=== PATIENT | female | born 1980 | race Two or more races ===

== ENCOUNTER 2016-10-28 08:44 | Emergency (ER) | payer OTHER ==
[2016-10-28 08:55] VITALS: TEMP 98.3; BMI 26.7
--- NOTE | 2016-10-28 08:56 | PDOC ---
History of Present Illness - General Chief Complaint: Vaginal Bleeding Stated Complaint: HEADACHE, BLURRY VISION, VAG BLEEDING Time Seen by Provider: 10/28/16 08:56 History Source: Patient Exam Limitations: No Limitations - History of Present Illness Initial Comments: 10/28/16 08:56 CHIEF COMPLAINT: Vaginal bleeding HISTORY OF PRESENT ILLNESS: This is an otherwise healthy 36 year old a1 who underwent surgical at 8 wks gestation at the [facility] in [place] on 10/20. She reports that she had light bleeding following the procedure, but last night developed lower abdominal pain and this morning, had heavy bleeding (3 pads since 6am with clots). She reports some dizziness/ blurred vision when standing. She denies chest pain, shortness of breath, fevers /chills, or any other symptoms. V/s on arrival are notable for P 101. 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 REVIEW OF SYSTEMS: GENERAL/CONSTITUTIONAL: No fever or chills. No weight change. HEAD, EYES, EARS, NOSE AND THROAT: Transient blurred vision. No ear pain or discharge. No sore throat. CARDIOVASCULAR: No chest pain or palpitations. RESPIRATORY: No cough, wheezing, or shortness of breath. GASTROINTESTINAL: No nausea, vomiting, diarrhea or constipation. GENITOURINARY: See HPI. MUSCULOSKELETAL: No joint or muscle swelling or pain. No neck or back pain. SKIN: No rash or easy bruising. NEUROLOGIC: No headache, vertigo, loss of consciousness, or loss of sensation. PSYCHIATRIC: No depression or anxiety. ENDOCRINE: No increased thirst. No abnormal weight change. HEMATOLOGIC/LYMPHATIC: No anemia, easy bleeding, or history of blood clots. ALLERGIC/IMMUNOLOGIC: No hives or skin allergy. No latex allergy. PHYSICAL EXAM: GENERAL: The patient is awake, alert, and fully oriented, in no acute distress. HEAD: Normal with no signs of trauma. ENT: Pupils equal, round and reactive to light, extraocular movements intact, sclera anicteric, conjunctiva clear. Neck supple. LUNGS: Clear to auscultation bilaterally. Normal excursion. No respiratory distress or use of accessory muscles. CV: RRR, S1/S2, no MRG. Cap refill < 2 sec. ABDOMEN: Soft, non-distended, non-tender. EXTREMITIES: Normal range of motion, no edema. NEUROLOGICAL: Normal speech, normal gait. CN II-XII grossly intact. PSYCH: Normal mood, normal affect. SKIN: Warm, dry, normal turgor, no rashes or lesions noted. BODY PRESSER: Normal external exam. Cervix long, closed, posterior. No CMT. Mild bilateral adnexal tenderness, L>R. Moderate blood in vaginal vault, no clots. Past History - Past Medical History Allergies/Adverse Reactions: Allergies Allergy/AdvReac Type Severity Reaction Status Date / Time No Known Allergies Allergy Verified 10/28/16 08:49 Home Medications: Ambulatory Orders Plus Tablet 1 tab-cap PO DAILY 09/08/12 Acetaminophen [Tylenol .Regular Strength -] 325 mg PO Q4H PRN #2 tablet Ibuprofen [Motrin -] 200 mg PO Q4H PRN #2 tablet 09/12/12 Ibuprofen 600 mg PO Q6H #30 tablet 10/28/16 Asthma: No Cancer: No Cardiac Disorders: No Diabetes: No HTN: No Seizures: No Thyroid Disease: No Other medical history: denies - Psycho/Social/Smoking Cessation Hx Suicidal Ideation: No Smoking History: Never smoked Hx Alcohol Use: No Drug/Substance Use Hx: No Hx Substance Use Treatment: No *Physical Exam - Vital Signs Last Vital Signs Temp Pulse Resp BP Pulse Ox 98.3 F 101 H 18 135/86 98 10/28/16 08:49 10/28/16 08:49 10/28/16 08:49 10/28/16 08:49 10/28/16 08:49 ED Treatment Course - LABORATORY CBC & Chemistry Diagram: 10/28/16 09:30 10/28/16 09:30 Medical Decision Making - Medical Decision Making 10/28/16 09:50 A/P: 36 year old female with lower abdominal pain and vaginal bleeding 8 days post surgical . 1. CBC to rule out symptomatic anemia (lightheadedness, transient blurred vision when standing), BMP, T&S 2. Toradol 30mg IVP for pain 3. Transvaginal u/s to r/o retained POC 4. Re-assess 10/28/16 10:45 H/H within normal limits at 13.5/40.8. 10/28/16 11:36 Ultrasound reviewed: echogenic material within the endometrial cavity suspicious for retained products of conception. Discussed with Dr. Cristina attraction worker for OB- does not suspect retained POC and says findings are likely on the basis of blood clots. Will see patient at [facility] at 9:30am tomorrow. Patient is feeling better and agrees to the plan. Return precautions reviewed. *DC/Admit/Observation/Transfer Diagnosis at time of Disposition: Vaginal bleeding - Discharge Dispostion Admit: No - Prescriptions Prescriptions: Ibuprofen 600 mg PO Q6H #30 tablet - Patient Instructions Printed Discharge Instructions: DI for Vaginal Bleeding Additional Instructions: -Please see Dr. Cristina at the [facility] ([facility]) tomorrow at 9:30am. -Take ibuprofen as prescribed for pain/cramping. -Return here for heavy bleeding (more than one pad per hour) or any other concerning symptoms.
[2016-10-28] MEDS ORDERED: KETOROLAC TROMETHAMINE 30 MG/1 ML VIAL IVPUSH ONE (09:12)
[2016-10-28] MEDS ORDERED: SODIUM CHLORIDE 1,000 ML IV SCH (09:15)
[2016-10-28] MEDS ORDERED: KETOROLAC TROMETHAMINE 30 MG/1 ML VIAL ONE (09:17)
[2016-10-28 10:07] LABS: BASOPHIL 0.5 % (0-2.0); MCH 29.2 pg (25.7-33.7); MCHC 33.2 g/dl (32.0-36.0); MEAN CELL VOLUME 88.1 fl (80-96); MEAN PLT VOLUME 8.2 fl (7.5-11.1); PLATELET COUNT 303 K/MM3 (134-434); RDW 14.2 % (11.6-15.6); WHITE BLOOD COUNT 7.3 K/mm3 (4.0-10.0)
[2016-10-28 10:11] LABS: CALCIUM 9.2 mg/dL (8.5-10.1); CREATININE 0.6 mg/dL (0.55-1.02)
[2016-10-28 10:30] LABS: URINE APPEARANCE CLEAR; URINE BILIRUBIN NEGATIVE (NEGATIVE); URINE COLOR STRAW; URINE GLUCOSE (UA) NEGATIVE (NEGATIVE); URINE KETONE NEGATIVE (NEGATIVE); URINE LEUK ESTERASE NEGATIVE (NEGATIVE); URINE NITRITE NEGATIVE (NEGATIVE); URINE PROTEIN NEGATIVE (NEGATIVE); URINE UROBILINOGEN NEGATIVE E.U./dl (0.2-1.0)
[2016-10-28 10:45] LABS: URINE BLOOD 3+ (NEGATIVE)
[2016-10-28 10:47] LABS: URINE MUCUS RARE; URINE RBC 98 /hpf (0-3)
[2016-10-28 11:45] VITALS: BP 120/72; PULSE 71
== END 2016-10-28 11:50 | disposition home or self-care (01) ==
LOC: JER 08:44
PROC: 3E0333Z Introduction of Anti-inflammatory into Peripheral Vein, Percutaneous Approach (ICD-10-PCS; principal; 2016-10-28)
DX: N93.9 Abnormal uterine and vaginal bleeding, unspecified (principal)
CPT/HCPCS: 36415; 76830-TC; 80048; 81003; 81015; 85025; 86850; 86900; 86901; 87086; 96374; 99283-25

== ENCOUNTER 2017-10-08 07:17 | Emergency (ER) | payer OTHER ==
[2017-10-08 07:35] VITALS: BP 135/80; PULSE 83; TEMP 98.1; BMI 27.8
--- NOTE | 2017-10-08 07:55 | PDOC ---
History of Present Illness - General History Source: Patient - History of Present Illness Timing/Duration: reports: other (5 days ago) Associated Symptoms: reports: cough, sore throat. denies: chest pain/soreness, earache, facial pain, fever/chills, muscle aches, nasal congestion, nasal drainage, shortness of breath, wheezing <Wilbert Cherry - Last Filed: 10/08/17 09:45> <Berkley Smith - Last Filed: 10/08/17 09:48> - General Chief Complaint: Sore Throat Stated Complaint: SORE THROAT Time Seen by Provider: 10/08/17 07:54 Past History - Past Medical History Asthma: No Cancer: No Cardiac Disorders: No COPD: No Diabetes: No HTN: No Seizures: No Thyroid Disease: No - Reproductive History (#): 3 Para: 2 - Suicide/Smoking/Psychosocial Hx Smoking History: Never smoked Hx Alcohol Use: No Drug/Substance Use Hx: No Hx Substance Use Treatment: No <Wilbert Cherry - Last Filed: 10/08/17 09:45> <Berkley Smith - Last Filed: 10/08/17 09:48> - Past Medical History Allergies/Adverse Reactions: Allergies Allergy/AdvReac Type Severity Reaction Status Date / Time No Known Allergies Allergy Verified 10/08/17 07:28 Home Medications: Ambulatory Orders Plus Tablet 1 tab-cap PO DAILY 09/08/12 Ibuprofen [Motrin -] 200 mg PO Q4H PRN #2 tablet 09/12/12 Ibuprofen 600 mg PO Q6H #30 tablet 10/28/16 Review of Systems - Review of Systems Constitutional: No: Chills, Fever HEENTM: Yes: Throat Pain. No: Ear Pain Respiratory: Yes: Cough. No: Shortness of Breath <Wilbert Cherry - Last Filed: 10/08/17 09:45> *Physical Exam - Vital Signs Last Vital Signs Temp Pulse Resp BP Pulse Ox 98.1 F 83 19 135/80 97 10/08/17 07:28 10/08/17 07:28 10/08/17 07:28 10/08/17 07:28 10/08/17 07:28 - Physical Exam General Appearance: Yes: Appropriately Dressed. No: Apparent Distress HEENT: positive: Normal ENT Inspection, Normal Voice, TMs Normal, Pharynx Normal. negative: Scleral Icterus (R), Scleral Icterus (L), Muffled/Hoarse voice, Tonsillar Exudate, Tonsillar Erythema Neck: positive: Supple. negative: Lymphadenopathy (R), Lymphadenopathy (L) Respiratory/Chest: negative: Respiratory Distress Integumentary: positive: Dry, Warm Neurologic: positive: Fully Oriented, Alert, Normal Mood/Affect <Wilbert Cherry - Last Filed: 10/08/17 09:45> - Vital Signs Last Vital Signs Temp Pulse Resp BP Pulse Ox 98.1 F 83 19 135/80 97 10/08/17 07:28 10/08/17 07:28 10/08/17 07:28 10/08/17 07:28 10/08/17 07:28 <Berkley Smith - Last Filed: 10/08/17 09:48> ED Treatment Course - Medications Given in the ED: ED Medications Discontinued Medications Generic Name Dose Route Start Last Admin Trade Name Danielq PRN Reason Stop Dose Admin Ibuprofen 800 mg 10/08/17 08:16 10/08/17 09:04 Motrin - PO 10/08/17 08:17 800 mg ONCE ONE Administration <Berkley Smith - Last Filed: 10/08/17 09:48> Medical Decision Making - Medical Decision Making 10/08/17 07:55 37-year-old female, no significant history here with sore throat and cough 5 days. No ear pain, sob, body aches, nausea, vomiting, diarrhea, fever or chills. States her child has the flu at home. Patient taking 400 mg of motrin with mild relief. Patient currently on amoxicillin after having recent dental extraction See exam M/l viral pharyngitis Exam unremarkable Dc w/ pain control <Wilbert Cherry Last Filed: 10/08/17 09:45> *DC/Admit/Observation/Transfer <Wilbert Cherry Filed: 10/08/17 09:45> - Attestations Physician Attestion: I reviewed the case with the mid-level practitioner and agree with the mid- level practitioner's assessment, diagnosis and disposition. <Berkley Smith - Last Filed: 10/08/17 09:48> Diagnosis at time of Disposition: Sore throat - Discharge Dispostion Disposition: HOME Condition at time of disposition: Good - Patient Instructions Printed Discharge Instructions: DI for Viral Pharyngitis Additional Instructions: The cause of your sore throat is most likely viral. There is no evidence of strep throat. Take 800 mg of Motrin every 6 hours as needed for pain
[2017-10-08] MEDS ORDERED: IBUPROFEN 400 MG TABLET (FP) PO ONE ×2 (08:16→09:02)
== END 2017-10-08 09:10 | disposition home or self-care (01) ==
LOC: JER 07:17
DX: J02.9 Acute pharyngitis, unspecified (principal); B97.89 Other viral agents as the cause of diseases classified elsewhere
CPT/HCPCS: 99281-25

== ENCOUNTER 2018-12-20 23:03 | Emergency (ER) | payer OTHER ==
[2018-12-20 23:21] VITALS: BP 146/100; PULSE 128; TEMP 98; BMI 25.7
[2018-12-21] MEDS ORDERED: ACETAMINOPHEN 1000 MG/100 ML VIAL (NON FORMULARY) IVPB ONE (00:01)
[2018-12-21] MEDS ORDERED: ACETAMINOPHEN INJECTION 100 ML IVPB ONE (00:31)
[2018-12-21 00:38] LABS: BASO % 0.2 % (0-2.0); EOS % 0.5 % (0-4.5); HEMATOCRIT 37.9 % (32.4-45.2); HEMOGLOBIN 12.9 GM/dL (10.7-15.3); LYMPH % 19.6 % (8-40); MEAN CELL VOLUME 88.1 fl (80-96); MONO % 5.6 % (3.8-10.2); NEUT % 74.1 % (42.8-82.8); PLATELET COUNT 271 K/MM3 (134-434); RDW 14.4 % (11.6-15.6); WHITE BLOOD COUNT 7.8 K/mm3 (4.0-10.0)
--- NOTE | 2018-12-21 02:03 | PDOC ---
Documentation entered by Baldo Templeton SCRIBE, acting as scribe for Maia Keene MD. Maia Keene MD: This documentation has been prepared by the anjuibe, Baldo Templeton SCRIBE, under my direction and personally reviewed by me in its entirety. I confirm that the documentation accurately reflects all work, treatment, procedures, and medical decision making performed by me. History of Present Illness - General Chief Complaint: Vaginal Bleeding Stated Complaint: 3 MON. PREG, PAIN Time Seen by Provider: 12/20/18 23:19 History Source: Patient, Significant Other Exam Limitations: No Limitations - History of Present Illness Initial Comments: 12/20/18 23:41 The patient is a 38 year old female(), 3 months , with no significant past medical history who presents to the emergency department with vaginal bleed since earlier today. The patient reports that she was at home earlier today when she began to experience an onset of heavy vaginal bleeding. The patient reports some associated severe lower suprapubic abdominal pain with her vaginal bleed. The patient reports some lower back pain earlier in the day before the onset of her vaginal bleeding and abdominal pain. She states that she follows her OB at [address] [place] [address] ( last US was 12/09, IUP 12 weeks). It is noted that the patient has had 1 and 1 natural in the past (lmp 09/14/18). The patient denies any fever, chills nausea, vomiting, diarrhea or constipation. She denies any other complaints. Timing/Duration: 4-6 hours Severity: moderate Past History - Past Medical History Allergies/Adverse Reactions: Allergies Allergy/AdvReac Type Severity Reaction Status Date / Time No Known Allergies Allergy Verified 02/03/18 09:25 Home Medications: Ambulatory Orders NK [No Known Home Medication] 02/03/18 Asthma: No Cancer: No Cardiac Disorders: No COPD: No DVT: No Diabetes: No HTN: No Seizures: No Thyroid Disease: No - Reproductive History (#): 3 Para: 2 - Suicide/Smoking/Psychosocial Hx Smoking History: Never smoked Have you smoked in the past 12 months: No Hx Alcohol Use: No Drug/Substance Use Hx: No Substance Use Type: None Hx Substance Use Treatment: No Review of Systems - Review of Systems Able to Perform ROS?: Yes Comments:: 12/21/18 00:05 CONSTITUTIONAL: Absent: fever, no chills, no fatigue EYES: Absent: visual changes ENT: Absent: ear pain, no sore throat CARDIOVASCULAR: Absent: chest pain, no palpitations RESPIRATORY: Absent: cough, no SOB GI:(+)abdominal cramping. Absent: no nausea, no vomiting, no constipation, no diarrhea GENITOURINARY:(+)vaginal bleeding. Absent: dysuria, no frequency, no hematuria MUSKULOSKELETAL: Absent: back pain, no arthralgia, no myalgia SKIN: Absent: rash NEURO: Absent: headache *Physical Exam - Vital Signs Last Vital Signs Temp Pulse Resp BP Pulse Ox 98 F 128 H 20 146/100 98 12/20/18 23:08 12/20/18 23:08 12/20/18 23:08 12/20/18 23:08 12/20/18 23:08 ED Treatment Course - LABORATORY CBC & Chemistry Diagram: 12/21/18 00:19 - ADDITIONAL ORDERS Additional order review: 12/21/18 00:19 RBC 4.30 MCV 88.1 MCHC 34.0 RDW 14.4 MPV 8.0 Neutrophils % 74.1 D Lymphocytes % 19.6 D Monocytes % 5.6 Eosinophils % 0.5 Basophils % 0.2 - RADIOLOGY Radiology Studies Ordered: Category Date Time Status <14WKS US [US] Stat Ultrasound 12/20/18 23:21 Taken - Medications Given in the ED: ED Medications Discontinued Medications Generic Name Dose Route Start Last Admin Trade Name Freq PRN Reason Stop Dose Admin Acetaminophen 1,000 mg 12/21/18 00:01 12/21/18 00:35 Ofirmev Injection - IVPB 12/21/18 00:02 1,000 mg ONCE ONE Administration Medical Decision Making - Medical Decision Making 12/21/18 01:27 Transvaginal ultrasound reading Live intrauterine 14 weeks. 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
== END 2018-12-21 02:12 | disposition home or self-care (01) ==
LOC: JER 23:03
PROC: 3E033NZ Introduction of Analgesics, Hypnotics, Sedatives into Peripheral Vein, Percutaneous Approach (ICD-10-PCS; principal; 2018-12-20)
DX: O26.892 Other specified pregnancy related conditions, second trimester (principal); O20.0 Threatened abortion; Z3A.14 14 weeks gestation of pregnancy
CPT/HCPCS: 36415; 76801-TC; 84702; 85025; 86850; 86900; 86901; 96374; 99283-25; J0131

== ENCOUNTER 2018-12-22 17:13 | Emergency (ER) | payer OTHER ==
--- NOTE | 2018-12-22 17:16 | PDOC ---
Rapid Medical Evaluation Chief Complaint: Vaginal Bleeding Time Seen by Provider: 12/22/18 17:15 Medical Evaluation: Allergies Allergy/AdvReac Type Severity Reaction Status Date / Time No Known Allergies Allergy Verified 02/03/18 09:25 12/22/18 17:18 I have performed a brief in-person evaluation of this patient. The patient presents with a chief complaint of: 3 mos , bleeding seen in ed for same, placenta previa with closed os, live iup Pertinent physical exam findings:stable and in NAD, non-focal I have ordered the following:labs The patient will proceed to the ED for further evaluation.
[2018-12-22 17:21] VITALS: BMI 24.9
--- NOTE | 2018-12-22 17:53 | PDOC ---
History of Present Illness - General Chief Complaint: Vaginal Bleeding Stated Complaint: ABD PAIN RREGNANT Time Seen by Provider: 12/22/18 17:15 History Source: Patient Exam Limitations: Language Barrier ([id number]) - History of Present Illness Initial Comments: 12/22/18 17:57 38 yo F 14 weeks 1 day (by LMP 09/14/2018) with no past medical history presents to the emergency department with vaginal bleeding and midline lower abdominal cramping that began today at 5:15 pm. Per the patient, she states she was sleeping when she arose from bed and had 3 large red blood clots pass with approximately 3 ounces of a water like viscosity vaginal discharge. She stated after this occurred, she immediately began having lower abdominal cramping with left lower back pain described as a cramp like sensation that is constant. Per the patient, she was evaluated by our department the day prior for vaginal bleeding and had a TVUS that showed a single IUP at 14 weeks 1 day. Endorses nausea and vomiting (NBNB). Denies the following: chest pain, fever, chills, ears/nose/throat pain, SOB, dysuria, hematuria, diarrhea, hematochezia, and leg pain/swelling. Allergies: NKDA Social: Denies tobacco, alcohol, and substance abuse. Past History - Past Medical History Allergies/Adverse Reactions: Allergies Allergy/AdvReac Type Severity Reaction Status Date / Time No Known Allergies Allergy Verified 12/22/18 17:20 Home Medications: Ambulatory Orders NK [No Known Home Medication] 02/03/18 Asthma: No Cancer: No Cardiac Disorders: No COPD: No DVT: No Diabetes: No HTN: No Seizures: No Thyroid Disease: No - Reproductive History (#): 3 Para: 2 Cervical CA: No Dysfunctional Uterine Bleeding: No Ectopic : No Endometrial CA: No Polycystic Ovaries: No Therapeutic (s) & number: No Tubal Ligation: No Spontaneous : 0 - Suicide/Smoking/Psychosocial Hx Smoking History: Never smoked Have you smoked in the past 12 months: No Information on smoking cessation initiated: No Hx Alcohol Use: No Drug/Substance Use Hx: No Substance Use Type: None Hx Substance Use Treatment: No Review of Systems - Review of Systems Able to Perform ROS?: Yes Is the patient limited Persian proficient: No Constitutional: No: Chills, Diaphoresis, Fever HEENTM: No: Eye Pain, Recent change in vision, Ear Pain, Nose Pain, Throat Pain , Mouth Pain Respiratory: No: Cough, Shortness of Breath, Hemoptysis Cardiac (ROS): No: Chest Pain, Lightheadedness, Palpitations, Syncope, Chest Tightness ABD/GI: Yes: Nausea, Vomiting, Abdominal cramping. No: Constipated, Diarrhea, Poor Appetite, Poor Fluid Intake, Rectal Bleeding, Tarry Stools : No: Burning, Dysuria, Hematuria, Incontinence Musculoskeletal: Yes: Back Pain. No: Joint Pain, Neck Pain Integumentary: No: Bruising, Erythema, Rash Neurological: No: Headache, Numbness, Tingling, Tremors Psychiatric: No: Change in Appetite Endocrine: No: Unexplained Weight Gain Hematologic/Lymphatic: No: Anemia *Physical Exam - Vital Signs Last Vital Signs Temp Pulse Resp BP Pulse Ox 98.1 F 82 18 127/67 100 12/22/18 17:18 12/22/18 17:18 12/22/18 17:18 12/22/18 17:18 12/22/18 17:18 - Physical Exam General Appearance: Yes: Nourished, Appropriately Dressed. No: Apparent Distress, Intoxicated HEENT: positive: EOMI, RO, Normal Voice, Symmetrical, Pharynx Normal, Hearing Grossly Normal. negative: Pale Conjunctivae, Scleral Icterus (R), Scleral Icterus (L), Muffled/Hoarse voice, Pharyngeal Erythema, Tonsillar Exudate, Tonsillar Erythema, Nasal Congestion, Rhinorrhea, Sinus Tenderness, Excessive drooling Neck: positive: Trachea midline, Supple. negative: Tender, Lymphadenopathy (R) , Lymphadenopathy (L), Tender lateral, Tender midline Respiratory/Chest: positive: Lungs Clear, Normal Breath Sounds. negative: Chest Tender, Respiratory Distress, Accessory Muscle Use, Rhonchi, Stridor, Wheezing Cardiovascular: positive: Regular Rhythm, Regular Rate, S1, S2. negative: Systolic Murmur Female Pelvic Exam: positive: normal external exam, cervical os closed, normal adnexa, vaginal bleeding (meier color consistent with aged blood). negative: CMT , adnexal tenderness Gastrointestinal/Abdominal: positive: Normal Bowel Sounds, Tender (midline abdominal), Flat, Soft. negative: Distended, Guarding, Rebound Lymphatic: negative: Adenopathy Musculoskeletal: positive: Normal Inspection. negative: CVA Tenderness, Vertebral Tenderness Extremity: positive: Normal Capillary Refill, Normal Inspection, Normal Range of Motion. negative: Tender Integumentary: positive: Normal Color, Dry, Warm. negative: Hives, Petechiae, Rash, Swelling, Ecchymosis Neurologic: positive: boxcar weigher II-XII NML intact, Fully Oriented, Alert, Normal Mood/ Affect, Normal Response, Motor Strength 5/5. negative: EOM Palsy, Facial Droop , Sensory Deficit ED Treatment Course - LABORATORY CBC & Chemistry Diagram: 12/22/18 18:26 12/22/18 18:26 Medical Decision Making - Medical Decision Making 38 yo F 14 weeks 1 day (by LMP 09/14/2018) with no past medical history presents to the emergency department with vaginal bleeding and midline lower abdominal cramping that began today at 5:15 pm. Initial vitals: Initial Vital Signs Temp Pulse Resp BP Pulse Ox 98.1 F 82 18 127/67 100 12/22/18 17:18 12/22/18 17:18 12/22/18 17:18 12/22/18 17:18 12/22/18 17:18 Work up: ddx: threatened vs inevitable vs incomplete vs complete . Other ddx includes placental abruption vs placental previa. physical exam shows closed os with aged blood and no adnexal tenderness or CMT. Will get a cbc, cmp, bhcg, and us for . ua and urine culture will also be evaluated Laboratory Tests 12/22/18 12/22/18 12/22/18 18:00 18:26 18:26 WBC 9.0 RBC 4.46 Hgb 13.4 Hct 39.0 MCV 87.4 MCH 30.0 MCHC 34.3 RDW 14.1 Plt Count 305 MPV 8.1 Absolute Neuts (auto) 6.2 Neutrophils % 69.1 Lymphocytes % 24.1 D Monocytes % 5.8 Eosinophils % 0.7 Basophils % 0.3 Nucleated RBC % 0 Sodium 138 Potassium 3.6 Chloride 109 H Carbon Dioxide 18 L Anion Gap 11 BUN 9 Creatinine 0.5 L Creat Clearance w eGFR 139.61 Random Glucose 89 Calcium 9.3 Total Bilirubin AST ALT Alkaline Phosphatase Total Protein Albumin Beta HCG, Quant 43831.0 Urine Color Yellow Urine Appearance Clear Urine pH 5.5 Ur Specific Dupont 1.018 Urine Protein Negative Urine Glucose (UA) Negative Urine Ketones 1+ H Urine Blood 3+ H Urine Nitrite Negative Urine Bilirubin Negative Urine Urobilinogen 1.0 Ur Leukocyte Esterase Negative Urine WBC (Auto) 1 Urine RBC (Auto) 2 Urine Casts (Auto) 4 U Pathogenic Cast Auto No Result Required. U Epithel Cells (Auto) 3.4 U Sm Round Cell (Auto) No Result Required. Urine Crystals (Auto) No Result Required. Urine Bacteria (Auto) 151.7 Blood Type Antibody Screen 12/22/18 12/22/18 18:26 18:26 WBC RBC Hgb Hct MCV MCH MCHC RDW Plt Count MPV Absolute Neuts (auto) Neutrophils % Lymphocytes % Monocytes % Eosinophils % Basophils % Nucleated RBC % Sodium 137 Potassium 3.6 Chloride 108 H Carbon Dioxide 20 L Anion Gap 10 BUN 9 Creatinine 0.4 L Creat Clearance w eGFR 180.61 Random Glucose 91 Calcium 9.3 Total Bilirubin 0.4 AST 14 L ALT 13 Alkaline Phosphatase 53 Total Protein 6.9 Albumin 3.6 Beta HCG, Quant Urine Color Urine Appearance Urine pH Ur Specific Dupont Urine Protein Urine Glucose (UA) Urine Ketones Urine Blood Urine Nitrite Urine Bilirubin Urine Urobilinogen Ur Leukocyte Esterase Urine WBC (Auto) Urine RBC (Auto) Urine Casts (Auto) U Pathogenic Cast Auto U Epithel Cells (Auto) U Sm Round Cell (Auto) Urine Crystals (Auto) Urine Bacteria (Auto) Blood Type O POSITIVE Antibody Screen Negative Interventions include tylenol, [place] [id number], less than 1000 below her previous value from the previous day. US shows an appropriate FHR with normal levels of amniotic fluid at 14 weeks 3 days EGA. Patient has been stable throughout her ED stay. her UA shows negative leuk est and nitrite with 1 wbc, but shows 151 bacteria count. will follow up on the culture and if positive patient will receive antibiotics. Patient was given strict return precautions and states she will follow up with her OBGYN in 48 hours for recheck of bhcg. Dispo: Discharge *DC/Admit/Observation/Transfer Diagnosis at time of Disposition: Vaginal bleeding Qualifiers: Weeks of gestation: 14 weeks Qualified Code(s): Z3A.14 - 14 weeks gestation of - Discharge Dispostion Disposition: HOME Decision to Admit order: No - Referrals Referrals: Shanika Lundberg CNM [Certified Nurse Civil Drafter] - Judy Alex MD [Staff Physician] - - Patient Instructions Printed Discharge Instructions: DI for Vaginal Bleeding During Additional Instructions: You were seen in the emergency department for vaginal bleed and cramping. your ultrasound was within normal limits with the baby's heart rate at 144. Your bhcg was [id number]. please follow up with your OBGYN in 2 days for an evaluation of your bhcg and ultrasound. please return to the emergency department if you have worsening symptoms or new concerning symptoms such as fever, chills, nausea, vomiting, pain with urination, blood in the urine, and ascending flank pain. thank you. Usted fue atendido en el departamento de emergencias por sangrado vaginal y clicos. ulloa ultrasonido estuvo dentro de los lmites normales con la frecuencia cardaca del beb en 144. [place] bhcg fue [id number]. Por favor, juli un seguimiento con ulloa OBGYN en 2 soliz para trey evaluacin de ulloa bhcg y ultrasonido. vuelva a la javier de emergencias si tiene sntomas de empeoramiento o sntomas nuevos, evon fiebre, escalofros, nuseas, vmitos, dolor al orinar, tisha en la orina y dolor en el flanco ascendente. jazz. Print Language: INDONESIAN - Post Discharge Activity Forms/Work/School Notes: Back to Work
[2018-12-22 18:41] LABS: BASO % 0.3 % (0-2.0); EOS % 0.7 % (0-4.5); HEMOGLOBIN 13.4 GM/dL (10.7-15.3); LYMPH % 24.1 % (8-40); MCHC 34.3 g/dl (32.0-36.0); MEAN CELL VOLUME 87.4 fl (80-96); MEAN PLT VOLUME 8.1 fl (7.5-11.1); MONO % 5.8 % (3.8-10.2); NEUT % 69.1 % (42.8-82.8); PLATELET COUNT 305 K/MM3 (134-434); RBC 4.46 M/mm3 (3.60-5.2); RDW 14.1 % (11.6-15.6)
[2018-12-22 18:42] LABS: EPI CELLS 3.4 /HPF (0-5/HPF); PH,URINE 5.5 (5.0-8.0); URINE APPEARANCE CLEAR; URINE BACTERIA 151.7 /hpf (NEGATIVE); URINE BILIRUBIN NEGATIVE (NEGATIVE); URINE CASTS 4 /lpf (0-8); URINE COLOR YELLOW; URINE GLUCOSE (UA) NEGATIVE (NEGATIVE); URINE KETONE 1+ (NEGATIVE); URINE LEUK ESTERASE NEGATIVE (NEGATIVE); URINE NITRITE NEGATIVE (NEGATIVE); URINE PROTEIN NEGATIVE (NEGATIVE); URINE RBC 2 /hpf (0-4); URINE WBC 1 /hpf (0-5)
--- NOTE | 2018-12-22 19:04 | PDOC ---
Documentation entered by Jorge Tucker SCRIBE, acting as scribe for Jesse Stinson MD. Jesse Stinson MD: This documentation has been prepared by the Garrett norris Nirvannie, SCRIBE, under my direction and personally reviewed by me in its entirety. I confirm that the documentation accurately reflects all work, treatment, procedures, and medical decision making performed by me. Attending Attestation - Resident Resident Name: Adonis Colmenares - ED Attending Attestation I have performed the following: I have examined & evaluated the patient, The case was reviewed & discussed with the resident, I agree w/resident's findings & plan - HPI HPI: 12/22/18 18:17 CC: Vaginal bleeding and abdominal pain. HPI: The patient is a 38 year old 14 weeks female , with no significant past medical history, who presents to the emergency department with, a 5/10 lower abdominal cramping with associated back back pain after passing 3 large blood clots and approximately 3oz of water at approximately 5:15pm. She denies any trauma to the pelvic area. Allergies: NKDA Blood Type: O+ - Physicial Exam PE: 12/22/18 18:42 Vitals: Triage vital signs reviewed General Appearance: No acute distress, well nourished, well developed Head: Atraumatic. Abdomen: Soft, nondistended, normal bowel sounds, nontender to palpation Genitourinary: Refer to resident exam. Neuro: AOX3; Cranial Nerves 2-12 grossly intact Psych: Normal mood, normal affect - Medical Decision Making 12/22/18 19:04 Second visit in 2 days with new bleeding Watery discharge Transvaginal ultrasound pending Dr. Neil to follow-up results and dispo
[2018-12-22 19:06] LABS: ALBUMIN 3.6 g/dl (3.4-5.0); ALK PHOS 53 U/L (45-117); ANION GAP 10 MMOL/L (8-16); BILIRUBIN,TOTAL 0.4 mg/dL (0.2-1); BLOOD UREA NITROGEN 9 mg/dL (7-18); CALCIUM 9.3 mg/dL (8.5-10.1); CHLORIDE 108 mmol/L (98-107); CO2 20 mmol/L (21-32); CREATININE 0.4 mg/dL (0.55-1.3); GLUCOSE,RANDOM 91 mg/dL (74-106); POTASSIUM 3.6 mmol/L (3.5-5.1); SGOT/AST 14 U/L (15-37); SGPT/ALT 13 U/L (13-61); SODIUM 137 mmol/L (136-145); TOT PROT 6.9 g/dl (6.4-8.2)
[2018-12-22 20:23] LABS: ANION GAP 11 MMOL/L (8-16); BLOOD UREA NITROGEN 9 mg/dL (7-18); CALCIUM 9.3 mg/dL (8.5-10.1); CHLORIDE 109 mmol/L (98-107); CO2 18 mmol/L (21-32); CREATININE 0.5 mg/dL (0.55-1.3); GLUCOSE,RANDOM 89 mg/dL (74-106); POTASSIUM 3.6 mmol/L (3.5-5.1); SODIUM 138 mmol/L (136-145)
[2018-12-22 21:04] VITALS: BP 125/65; PULSE 81; TEMP 98.7
== END 2018-12-22 21:10 | disposition home or self-care (01) ==
LOC: JER 17:13
DX: O26.892 Other specified pregnancy related conditions, second trimester (principal); O20.8 Other hemorrhage in early pregnancy; Z3A.14 14 weeks gestation of pregnancy
CPT/HCPCS: 36415; 76801-TC; 80048; 80053; 81003; 84702; 85025; 86850; 86900; 86901; 87081; 87086; 99283-25

== ENCOUNTER 2019-05-15 11:05 | Inpatient (IN) | payer OTHER ==
[2019-05-15] MEDS ORDERED: DEXTROSE 5%-LACTATED RINGERS 1,000 ML IV SCH (12:30)
[2019-05-15 13:30] VITALS: BMI 29.3
[2019-05-15] MEDS ORDERED: ELECTROLYTE-148 SOLN 500 ML IV ONE (13:45)
[2019-05-15] MEDS ORDERED: CITRIC ACID/SODIUM CITRATE 30 ML UNIT-DOSE CUP PO ONE (13:45)
[2019-05-15 14:02] LABS: BASO % 0.3 % (0-2.0); EOS % 0.4 % (0-4.5); HEMOGLOBIN 11.8 GM/dL (10.7-15.3); LYMPH % 21.9 % (8-40); MCH 29.7 pg (25.7-33.7); MCHC 33.5 g/dl (32.0-36.0); MEAN CELL VOLUME 88.6 fl (80-96); MEAN PLT VOLUME 8.9 fl (7.5-11.1); MONO % 6.9 % (3.8-10.2); NEUT % 70.5 % (42.8-82.8); PLATELET COUNT 245 K/MM3 (134-434); RBC 3.95 M/mm3 (3.60-5.2); RDW 13.9 % (11.6-15.6); WHITE BLOOD COUNT 8.1 K/mm3 (4.0-10.0)
[2019-05-15 14:13] LABS: INR 0.91 (0.83-1.09); PROTHROMBIN TIME (PATIENT) 10.7 SEC (9.7-13.0)
[2019-05-15] MEDS ORDERED: ELECTROLYTE-148 SOLN 500 ML IV SCH (14:15)
[2019-05-15 14:16] LABS: ACTIVATED PTT 26.3 SECONDS (25.2-36.5)
[2019-05-15 14:53] LABS: BLOOD UREA NITROGEN 7.8 mg/dL (7-18); CALCIUM 8.7 mg/dL (8.5-10.1); CREATININE 0.6 mg/dL (0.55-1.3); POTASSIUM 3.8 mmol/L (3.5-5.1)
[2019-05-15] MEDS ORDERED: ONDANSETRON 4 MG/2 ML VIAL IVPUSH PRN (16:00)
--- NOTE | 2019-05-15 16:02 | HP ---
Past Medical History - Primary Care Physician PCP:: Indra Mays - Admission Chief Complaint: vaginal bleeding History of Present Illness: Patient reports leaking of blood starting at 10:30am. She reports that she feels like she is leaking and every ti,e she gets up blood comes out. She reports +FM, no contractions. 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: Alzheimer's, CVA, Dementia, Migraine, Multiple Sclerosis, Peripheral Neuropathy, Parkinson's, Seizure, Syncope, TIA, Vertigo, Other Cardiovascular: No: AFIB, Aneurysm, Aortic Insufficiency, Aortic Stenosis, CAD, CHF, Deep Vein Thrombosis, HTN, Hyperlipdemia, [place], Mitral Insufficiency, Mitral Stenosis, Murmur, Pulmonary Hypertension, Other Pulmonary: No: Asthma, Bronchitis, Cancer, COPD, O2 Dependent, Pneumonia, Previously Intubated, Pulmonary Embolus, Pulmonary Fibrosis, Sleep Apnea, Other Gastrointestinal: No: Ascites, Cancer, Constipation, Crohn's Disease, Diverticulitis, Diverticulosis, Esophageal Varices, Gastritis, GERD, GI Bleed, Hemorrhoids, Hiatal Hernia, Inflamatory Bowel Disease, Irritable Bowel Disease, Pancreatitis, Peptic Ulcer Disease, Ulcerative Colitis, Other Hepatobiliary: No: Cirrhosis, Cholelithiasis, Cholecystitis, Choledocholithiasis , Hepatitis A, Hepatitis B, Hepatitis C, Other Renal/: No: Renal Failure, Renal Inusuff, BPH, Cancer, Hematuria, Hemodialysis , Neurogenic Bladder, Renal Calculi, UTI, Other Reproductive: No: Ectopic , Endometriosis, Fibroids, PID, Polycystic Ovary Syndrome, Postmenopausal, Other ...: 5 ...Para: 2 ...Term: 2 ...: 0 ...Spon : 1 ...Induced : 1 ...Multiple Gestation: 0 ...LMP: 09/13/18 ... Weeks Gestation by Dates: 34.6 ...EDC by Dates: 06/20/19 ...EDC by Sono: 06/17/19 Heme/Onc: No: Anemia, B12 Deficiency, Bleeding Disorder, Cancer, Current Chemotherapy, Current Radiation Therapy, Hemochromatosis, Hypercoaguable State, Myeloproliferative Synd, Sickle Cell Disease, Sickle Cell Trait, Thrombocytopenia, Other Infectious Disease: No: AIDS, C-Diff, Herpes Zoster, HIV, MRSA, STD's, Tuberculosis, VREF, Other Psych: No: Addictions, Anxiety, Bipolar, Depression, Panic, Psychosis, Schizophrenia, Other Musculoskeletal: No: Bursitis, Chronic low back pain, Hemiparesis, Hemiplegia, Osteoarthritis, Paraplegia, Other Rheumatology: No: Fibromyalgia, Gout, Lupus, Rheumatoid Arthritis, Sarcoidosis, Vasculitis, Other ENT: No: Allergic Rhinitis, Sinusitis, Other Endocrine: No: Furnas's Disease, Vincent's Disease, Diabetes Insipidus, Diabetes Mellitus, Hyperparathyroidism, Hyperthyroidism, Hypothyroidism, Osteopenia, SIADH, Other Dermatology: No: Basal Cell, Cellulitis, Eczema, Melanoma, Psoriasis, Squamous Cell, Other - Past Surgical History Past Surgical History: Yes: Hx Myomectomy: No Hx Transabdominal Cerclage: No - Smoking History Smoking history: Never smoked Have you smoked in the past 12 months: No - Alcohol/Substance Use Hx Alcohol Use: No History of Substance Use: reports: None Home Medications - Allergies Allergies/Adverse Reactions: Allergies Allergy/AdvReac Type Severity Reaction Status Date / Time No Known Allergies Allergy Verified 05/15/19 12:53 - Home Medications Home Medications: Ambulatory Orders Pnv No.95/Ferrous Fum/Folic AC [ Vitamin Tablet] 1 each PO DAILY Review of Systems - Review of Systems Constitutional: denies: No Symptoms, Chills, Diaphoresis, Fever, Lethargy, Loss of Appetite, Malaise, Night Sweats, Unintentional Wgt. Loss, Weakness, Other Eyes: denies: No Symptoms, Blind Spots, Blurred Vision, Double Vision, Eye Pain , Floaters, Photophobia, Recent Change in Vision, Other HENT: denies: No Symptoms, Difficult Swallowing, Ear Discharge, Ear Pain, Epistaxis, Gingival Bleeding, Hearing Loss, Mouth Swelling, Nasal Congestion, Ocular Prosthesis, Throat Pain, Toothache, Ringing in Ears, Other Neck: denies: No Symptoms, Decreased ROM, Lumps, Pain on Movement, Stiffness, Swollen Glands, Tenderness, Other Cardiovascular: denies: No Symptoms, Chest Pain, Edema, Palpitations, Shortness of Breath, Other Gastrointestinal: denies: No Symptoms, Abdominal Pain, Bloating, Constipation, Diarrhea, Dysphagia, Indigestion, Melena, Nausea, Rectal Bleeding, Vomiting, Vomiting Blood, Other Genitourinary: reports: Vaginal Bleeding (as previously described. Patient is worried as she has a placenta previa) Breasts: reports: No Symptoms Reported Musculoskeletal: reports: No Symptoms Neurological: reports: No Symptoms Endocrine: reports: No Symptoms Hematology/Lymphatic: reports: No Symptoms Psychiatric: reports: No Symptoms Pain Intensity: 0 Physical Exam - Maternity Vital Signs: Vital Signs Temperature 97.9 F 05/15/19 14:00 Pulse Rate 79 05/15/19 15:00 Respiratory Rate 20 05/15/19 15:00 Blood Pressure 121/79 05/15/19 15:00 O2 Sat by Pulse Oximetry (%) Constitutional: Yes: Well Nourished HENT: Yes: Atraumatic, Normocephalic Neck: Yes: Supple Cardiovascular: Yes: Regular Rate and Rhythm Breast(s): Yes: Other (deferred) - Abdominal Exam/OB Number of Fetuses: Single Presentation: Vertex Contractions: No Regularity: Irritability Intensity: Unaware Monitor Mode: External Heart Rate (range): 125 Category: I Accelerations: None Decelerations: None - Vaginal Exam/OB Vaginal Bleediing: Yes Speculum Exam: Yes (moderate size clot at introitus and cervical os, active oozing on valsalva) Dilatation (cm): 0.5 Effacement (%): 0 Presentation: Vertex/Position (bedside sono: SHILPA 7.2, complete placenta previa (anterior)) - Physical Exam Musculoskeletal: Yes: WNL Extremities: Yes: WNL Edema: Yes Edema: LLE: Trace, RLE: Trace Psychiatric: Yes: Alert, Oriented - Labs Lab Results: CBC, BMP 05/15/19 13:34 05/15/19 13:34 Imaging - Results Ultrasound: Report Reviewed Assessment/Plan 39 y/o @ 34.6wks by LMP consistent with 1st trimester sono, presenting fro 3rd episode of vaginal bleeding, FHT reactive, Low SHILPA and active vaginal bleeding, PROM unable to be rule out completely. Scheduled RCS and BTL on . Patient was counseled regarding indication for delivery, she expressed desire for BTL. Placenta previa in the background of prior C/S discussed. Risks of bleeding, transfusion and hysterectomy explained at length. Risks of prematurity reviewed as delivery is indicated. -Notify NICU -PRBC on hold -Urgent C/S -Pre-op Abx
[2019-05-15] MEDS ORDERED: OXYTOCIN 10 UNITS/ML VIAL ONE (16:13)
[2019-05-15] MEDS ORDERED: KETOROLAC TROMETHAMINE 30 MG/1 ML VIAL ONE (16:13)
[2019-05-15] MEDS ORDERED: OXYTOCIN 20 UNITS in 0.9% NS 20 UNIT/1,000 ML INFUS.BAG IV ONE ×2 (16:34→18:27)
[2019-05-15] MEDS ORDERED: OXYTOCIN 20 UNITS in 0.9% NS 20 UNIT/1,000 ML INFUS.BAG IV SCH (17:45)
--- NOTE | 2019-05-15 17:50 | OP ---
Operative Note - Note: Operative Date: 05/15/19 (see dictation # [id number]) Pre-Operative Diagnosis: 34.6wks, prior C/S and anterior placenta previa Operation: RLTCS & BTL. Findings: see dictation Implants: none Post-Operative Diagnosis: Same as Pre-op Surgeon: Indra Mays City Planning Engineer: Rey Maradiaga Anesthesia: Spinal Specimens Removed: placenta and bilateral fallopian tubes Estimated Blood Loss (mls): 900 Drains, Volume Out (mls): 400 Fluid Volume Replaced (mls): 1,700 Operative Report Dictated: Yes
[2019-05-15 20:53] LABS: BASO % 0.2 % (0-2.0); EOS % 0.2 % (0-4.5); HEMOGLOBIN 11.1 GM/dL (10.7-15.3); LYMPH % 16.7 % (8-40); MCH 29.6 pg (25.7-33.7); MCHC 32.8 g/dl (32.0-36.0); MEAN CELL VOLUME 90.2 fl (80-96); MEAN PLT VOLUME 8.9 fl (7.5-11.1); MONO % 5.4 % (3.8-10.2); NEUT % 77.5 % (42.8-82.8); PLATELET COUNT 236 K/MM3 (134-434); RBC 3.77 M/mm3 (3.60-5.2); RDW 14.1 % (11.6-15.6); WHITE BLOOD COUNT 11.7 K/mm3 (4.0-10.0)
--- NOTE | 2019-05-15 21:32 | OP ---
DATE OF OPERATION: 05/15/2019 ATTENDING: Kwadwo Yeung MD PREOPERATIVE DIAGNOSIS: A 39-year-old, 5, para 2-0-2-2 at 34.6 weeks of gestation, prior section x1, complete placenta previa, actively bleeding. Patient desires bilateral tubal sterilization and previously counseled as an outpatient. POSTOPERATIVE DIAGNOSIS: A 39-year-old, 5, para 2-0-2-2 at 34.6 weeks of gestation, prior section x1, complete placenta previa, actively bleeding. Patient desires bilateral tubal sterilization and previously counseled as an outpatient. PROCEDURE: Repeat low transverse section, bilateral salpingectomy. SURGEON: Kwadwo Yeung MD ECHOCARDIOLOGIST: JOHN PAUL Conklin ANESTHESIA: Spinal. ESTIMATED BLOOD LOSS FOR THE PROCEDURE: 900 mL. INTRAVENOUS FLUIDS: Crystalloid 1700 mL. URINE OUTPUT: Clear urine 400 mL. COMPLICATIONS: None. SPECIMENS: Placenta, bilateral fallopian tubes to pathology. FINDINGS: Low abdominal scar consistent with prior section. Moderate amount of subcutaneous tissue and the fascia was fibrotic, adherent to the underlying rectus muscles. The rectus muscles were fused to each other in the midline. The bladder was slightly adherent to the lower uterine segment. The lower uterine segment noted to be congested with large vessels. Placenta was complete previa and anterior. Infant was in transverse, back up presentation. It was delivered double footling. Live viable infant. Placenta was removed without difficulty, and placental bed was noted to be hemostatically stable. Fundus and bilateral tubes and ovaries consistent with normal anatomy. Mesosalpinx surgical stumps were noted to be hemostatically stable as well. Fascia reapproximation was adequate as confirmed by surgeon. DESCRIPTION OF PROCEDURE: The patient was taken to the operating room where anesthesia was found to be adequate. She was then prepped and draped in the normal sterile fashion. Urinary Almaraz catheter was placed atraumatically. Appropriate timeout took place. A Pfannenstiel skin incision was made with the scalpel, following prior section scar. This incision was carried to the underlying fascia with the Bovie. The fascia was incised in the midline, and incision was extended laterally with sharp dissection. The underlying rectus muscles were dissected off sharply. The rectus muscles were noted to be fused at the midline and elevated with Allis clamp. The rectus muscles were dissected off sharply superiorly. Blunt entry to the peritoneal cavity revealed no visceral adhesions at the point of entry. The bladder blade was placed in the lower uterine segment, noted as previously mentioned. Bladder flap was performed without difficulty. Transverse uterine incision was made on the fundus approximately 10 cm from the vesicouterine junction. The uterus was thick, and the incision was extended laterally with blunt dissection. Placental tissue was encountered. Surgeon secured parts above the placenta. was delivered double footling breech without difficulty. Infant was handed off to the waiting NICU staff. Delayed cord clamp occurred. Samples for gases obtained. Sample for blood obtained as well. The placenta delivered spontaneously and intact, sent to pathology. Placental bed was noted to be hemostatically stable. The hysterotomy incision was reapproximated with 1-0 Polysorb suture in running locked fashion. Excellent structural reapproximation and hemostasis was noted. A second-layer of imbricating suture was used with 1-0 Polysorb. No active bleeding noted from the incision. The fundus was firm. Attention then was directed to the right fallopian tube which was elevated with Huslia clamps, and the mesosalpinx immediately adjacent to it was cauterized and transected with the LigaSure instrument. The entire tube was severed and sent to pathology. Surgical stump was noted to be dry. Attention then was directed to the contralateral fallopian tube which underwent the exact same procedure just described without difficulty. The uterus was internalized to the pelvic cavity, and gutters were cleared of all clots and debris. Excellent hemostasis from the uterine incision on secondary inspection was noted. Bladder dome and rectus muscle/fascial interface was noted to be dry with no evidence of trauma. The fascial incision was approximated with 0 Polysorb in a running non-locked fashion. Excellent structural reapproximation achieved and confirmed by digital palpation by the surgeon. Subcutaneous bleeder was neutralized with Bovie cautery. Skin incision was reapproximated with surgical jason. The patient tolerated the procedure well and is going to the recovery room in stable condition. Instrument count was correct x2 and confirmed by the staff. KWADWO YEUNG MD [id number] MTDD
[2019-05-16 08:13] LABS: BASO % 0.4 % (0-2.0); EOS % 0.3 % (0-4.5); HEMATOCRIT 32.8 % (32.4-45.2); LYMPH % 18.8 % (8-40); MCH 29.9 pg (25.7-33.7); MCHC 33.5 g/dl (32.0-36.0); MEAN CELL VOLUME 89.1 fl (80-96); MEAN PLT VOLUME 8.3 fl (7.5-11.1); MONO % 7.3 % (3.8-10.2); NEUT % 73.2 % (42.8-82.8); PLATELET COUNT 213 K/MM3 (134-434); RBC 3.68 M/mm3 (3.60-5.2); RDW 14.1 % (11.6-15.6); WHITE BLOOD COUNT 7.6 K/mm3 (4.0-10.0)
--- NOTE | 2019-05-16 08:21 | PN ---
Post Progress Note - Subjective Subjective: Patient is doing well, lochia decreased, Lopez still in place and not yet ambulating, baby in NICU in stable condition Post Day: 1 Type of Delivery: Repeat C/S Vital Signs: Vital Signs Temperature 99 F 05/16/19 06:00 Pulse Rate 85 05/16/19 06:00 Respiratory Rate 20 05/16/19 06:00 Blood Pressure 113/66 05/16/19 06:00 O2 Sat by Pulse Oximetry (%) 100 05/15/19 18:25 Breast Exam: Yes: Other (deferred) Uterus: Yes: Fundus Firm Incision: Yes: Iman intact (dressing removed) Abdomen/GI: Yes: Abdomen soft Lochia, amount: Small Extremities: Yes: Calves non-tender Activity: Other (encourage ambulation) - Labs Labs: CBC WBC 11.7 K/mm3 (4.0-10.0) H 05/15/19 20:15 RBC 3.77 M/mm3 (3.60-5.2) 05/15/19 20:15 Hgb 11.1 GM/dL (10.7-15.3) 05/15/19 20:15 Hct 34.0 % (32.4-45.2) 05/15/19 20:15 MCV 90.2 fl (80-96) 05/15/19 20:15 MCH 29.6 pg (25.7-33.7) 05/15/19 20:15 MCHC 32.8 g/dl (32.0-36.0) 05/15/19 20:15 RDW 14.1 % (11.6-15.6) 05/15/19 20:15 Plt Count 236 K/MM3 (134-434) 05/15/19 20:15 MPV 8.9 fl (7.5-11.1) 05/15/19 20:15 Absolute Neuts (auto) 9.0 K/mm3 (1.5-8.0) H 05/15/19 20:15 Neutrophils % 77.5 % (42.8-82.8) 05/15/19 20:15 Lymphocytes % 16.7 % (8-40) D 05/15/19 20:15 Monocytes % 5.4 % (3.8-10.2) 09/23/19 20:15 Eosinophils % 0.2 % (0-4.5) 05/15/19 20:15 Basophils % 0.2 % (0-2.0) 05/15/19 20:15 Nucleated RBC % 0 % (0-0) 05/15/19 20:15 Assessment/Plan POD # 1 S/P urgent RLTCS and BTL in the background of complete placenta previa actively bleeding. Baby is in NICU in stable condition. -D/C lopez -Encourage ambulation -F/U AM CBC
--- NOTE | 2019-05-16 08:53 | PN ---
Progress Note (short form) - Note Progress Note: Anesthesia postop note 39 y/o F s/p spinal anesthesia for section POD#1, vss, aaox3, pain well controlled, sensory motor intact distally No anesthesia complications.
[2019-05-16 09:11] LABS: RPR REACTIVE 1:1 (NONREACTIVE)
[2019-05-16] MEDS: ACETAMINOPHEN 325 MG TABLET (FP) PO PRN (11:22)
[2019-05-16] MEDS: IBUPROFEN 600 MG TABLET (FP) PO PRN ×2 (11:23→15:39)
[2019-05-16 11:25] LABS: TREPONEMA ANTIBODY NON REACTIVE (NONREACTIVE)
[2019-05-16] MEDS: oxyCODONE HCL 5 MG TABLET PO PRN (15:40)
[2019-05-16] MEDS: SIMETHICONE 80 MG TAB.CHEW (FP) PO PRN (15:40)
[2019-05-16] MEDS ORDERED: BISACODYL 10 MG SUPP.RECT RC PRN (17:37)
[2019-05-16 22:06] LABS: BASO % 0.4 % (0-2.0); EOS % 0.7 % (0-4.5); HEMATOCRIT 30.4 % (32.4-45.2); HEMOGLOBIN 10.2 GM/dL (10.7-15.3); LYMPH % 22.4 % (8-40); MCH 29.7 pg (25.7-33.7); MCHC 33.5 g/dl (32.0-36.0); MEAN CELL VOLUME 88.8 fl (80-96); MEAN PLT VOLUME 8.8 fl (7.5-11.1); MONO % 8.6 % (3.8-10.2); NEUT % 67.9 % (42.8-82.8); PLATELET COUNT 226 K/MM3 (134-434); RBC 3.42 M/mm3 (3.60-5.2); RDW 13.8 % (11.6-15.6); WHITE BLOOD COUNT 8.5 K/mm3 (4.0-10.0)
[2019-05-17] MEDS: SIMETHICONE 80 MG TAB.CHEW (FP) PO PRN (05:23)
[2019-05-17] MEDS: ACETAMINOPHEN 325 MG TABLET (FP) PO PRN (05:23)
[2019-05-17] MEDS: IBUPROFEN 600 MG TABLET (FP) PO PRN ×2 (05:23→14:54)
--- NOTE | 2019-05-17 08:33 | PN ---
Post Progress Note - Subjective Subjective: c/o pain at op site 11/30 voiding without difficulty bn not done Post Day: 2 Type of Delivery: Repeat C/S Vital Signs: Vital Signs Temperature 98.1 F 05/16/19 20:14 Pulse Rate 83 05/16/19 20:14 Respiratory Rate 20 05/16/19 20:14 Blood Pressure 104/51 L 05/16/19 20:14 O2 Sat by Pulse Oximetry (%) 100 05/15/19 18:25 Breast Exam: Yes: Soft, Other (bf). No: Engorged Uterus: Yes: Fundus Firm, Fundus below umbilicus, Non-tender Incision: Yes: [place] intact. No: Redness, Oozing Abdomen/GI: Yes: Abdomen soft, Passing flatus, Tolerating PO (diet). No: Abdominal Distention Lochia, amount: Small Extremities: Yes: Calves non-tender Perineum: Yes: Intact Activity: Ambulating - Labs Labs: CBC WBC 8.5 K/mm3 (4.0-10.0) 05/16/19 21:00 RBC 3.42 M/mm3 (3.60-5.2) L 05/16/19 21:00 Hgb 10.2 GM/dL (10.7-15.3) L 05/16/19 21:00 Hct 30.4 % (32.4-45.2) L 05/16/19 21:00 MCV 88.8 fl (80-96) 05/16/19 21:00 MCH 29.7 pg (25.7-33.7) 05/16/19 21:00 MCHC 33.5 g/dl (32.0-36.0) 05/16/19 21:00 RDW 13.8 % (11.6-15.6) 05/16/19 21:00 Plt Count 226 K/MM3 (134-434) 05/16/19 21:00 MPV 8.8 fl (7.5-11.1) 05/16/19 21:00 Absolute Neuts (auto) 5.8 K/mm3 (1.5-8.0) 05/16/19 21:00 Neutrophils % 67.9 % (42.8-82.8) 05/16/19 21:00 Lymphocytes % 22.4 % (8-40) 05/16/19 21:00 Monocytes % 8.6 % (3.8-10.2) 05/16/19 21:00 Eosinophils % 0.7 % (0-4.5) D 05/16/19 21:00 Basophils % 0.4 % (0-2.0) 05/16/19 21:00 Nucleated RBC % 0 % (0-0) 05/16/19 21:00 Problem List - Problems (1) Status post section routine follow-up Code(s): Z39.2 - ENCOUNTER FOR ROUTINE FOLLOW-UP; Z98.891 - HISTORY OF UTERINE SCAR FROM PREVIOUS SURGERY
[2019-05-17] MEDS: oxyCODONE HCL 5 MG TABLET PO PRN (14:54)
[2019-05-17 21:47] LABS: BASO % 0.6 % (0-2.0); EOS % 1.4 % (0-4.5); HEMATOCRIT 32.8 % (32.4-45.2); HEMOGLOBIN 10.8 GM/dL (10.7-15.3); LYMPH % 28.7 % (8-40); MCH 29.7 pg (25.7-33.7); MEAN CELL VOLUME 89.8 fl (80-96); MEAN PLT VOLUME 8.6 fl (7.5-11.1); NEUT % 61.3 % (42.8-82.8); PLATELET COUNT 275 K/MM3 (134-434); RBC 3.65 M/mm3 (3.60-5.2); RDW 14.2 % (11.6-15.6); WHITE BLOOD COUNT 8.3 K/mm3 (4.0-10.0)
[2019-05-18] MEDS: oxyCODONE HCL 5 MG TABLET PO PRN (06:00)
[2019-05-18] MEDS: IBUPROFEN 600 MG TABLET (FP) PO PRN ×2 (06:00→21:55)
[2019-05-18] MEDS: SIMETHICONE 80 MG TAB.CHEW (FP) PO PRN ×2 (06:00→21:55)
--- NOTE | 2019-05-18 09:57 | PN ---
Post Progress Note - Subjective Subjective: Status post , doing well. No complaints Post Day: 3 Type of Delivery: Repeat C/S Vital Signs: Vital Signs Temperature 98.5 F 05/17/19 22:00 Pulse Rate 83 05/17/19 22:00 Respiratory Rate 18 05/17/19 22:00 Blood Pressure 121/69 05/17/19 22:00 O2 Sat by Pulse Oximetry (%) 100 05/15/19 18:25 Breast Exam: Yes: Soft Uterus: Yes: Fundus below umbilicus Incision: Yes: Iman intact Abdomen/GI: Yes: Abdomen soft, Tolerating PO Lochia: Yes: Rubra Lochia, amount: Small Extremities: Yes: Calves non-tender Activity: Ambulating - Labs Labs: CBC WBC 8.3 K/mm3 (4.0-10.0) 05/17/19 21:15 RBC 3.65 M/mm3 (3.60-5.2) 05/17/19 21:15 Hgb 10.8 GM/dL (10.7-15.3) 05/17/19 21:15 Hct 32.8 % (32.4-45.2) 05/17/19 21:15 MCV 89.8 fl (80-96) 05/17/19 21:15 MCH 29.7 pg (25.7-33.7) 05/17/19 21:15 MCHC 33.0 g/dl (32.0-36.0) 05/17/19 21:15 RDW 14.2 % (11.6-15.6) 05/17/19 21:15 Plt Count 275 K/MM3 (134-434) D 05/17/19 21:15 MPV 8.6 fl (7.5-11.1) 05/17/19 21:15 Absolute Neuts (auto) 5.1 K/mm3 (1.5-8.0) 05/17/19 21:15 Neutrophils % 61.3 % (42.8-82.8) 05/17/19 21:15 Lymphocytes % 28.7 % (8-40) D 05/17/19 21:15 Monocytes % 8.0 % (3.8-10.2) 05/17/19 21:15 Eosinophils % 1.4 % (0-4.5) D 05/17/19 21:15 Basophils % 0.6 % (0-2.0) 05/17/19 21:15 Nucleated RBC % 0 % (0-0) 05/17/19 21:15 Assessment/Plan Status post Ambulation Analgesia as needed Continue post op care
[2019-05-18] MEDS: ACETAMINOPHEN 325 MG TABLET (FP) PO PRN (21:56)
--- NOTE | 2019-05-19 06:00 | PN ---
Post Progress Note - Subjective Subjective: pt resting in bed, minmal pain, doing well no complaints Post Day: 4 Type of Delivery: Repeat C/S Vital Signs: Vital Signs Temperature 99.1 F 05/18/19 22:00 Pulse Rate 86 05/18/19 22:00 Respiratory Rate 18 05/18/19 22:00 Blood Pressure 123/71 05/18/19 22:00 O2 Sat by Pulse Oximetry (%) 100 05/15/19 18:25 Uterus: Yes: Fundus Firm Incision: Yes: Iman intact Abdomen/GI: Yes: Abdomen soft Lochia: Yes: Rubra Lochia, amount: Small Extremities: Yes: Calves non-tender Perineum: Yes: Intact Activity: Ambulating - Labs Labs: CBC WBC 8.3 K/mm3 (4.0-10.0) 05/17/19 21:15 RBC 3.65 M/mm3 (3.60-5.2) 05/17/19 21:15 Hgb 10.8 GM/dL (10.7-15.3) 05/17/19 21:15 Hct 32.8 % (32.4-45.2) 05/17/19 21:15 MCV 89.8 fl (80-96) 05/17/19 21:15 MCH 29.7 pg (25.7-33.7) 05/17/19 21:15 MCHC 33.0 g/dl (32.0-36.0) 05/17/19 21:15 RDW 14.2 % (11.6-15.6) 05/17/19 21:15 Plt Count 275 K/MM3 (134-434) D 05/17/19 21:15 MPV 8.6 fl (7.5-11.1) 05/17/19 21:15 Absolute Neuts (auto) 5.1 K/mm3 (1.5-8.0) 05/17/19 21:15 Neutrophils % 61.3 % (42.8-82.8) 05/17/19 21:15 Lymphocytes % 28.7 % (8-40) D 05/17/19 21:15 Monocytes % 8.0 % (3.8-10.2) 05/17/19 21:15 Eosinophils % 1.4 % (0-4.5) D 05/17/19 21:15 Basophils % 0.6 % (0-2.0) 05/17/19 21:15 Nucleated RBC % 0 % (0-0) 05/17/19 21:15 Assessment/Plan home today see on wednesday/ for staple removal
[2019-05-19] MEDS: SIMETHICONE 80 MG TAB.CHEW (FP) PO PRN (07:53)
[2019-05-19] MEDS: IBUPROFEN 600 MG TABLET (FP) PO PRN (07:53)
[2019-05-19] MEDS: ACETAMINOPHEN 325 MG TABLET (FP) PO PRN (07:55)
--- NOTE | 2019-05-19 10:18 | PATH ---
Surgical Pathology Report Patient Name: TIANA AHUMADA [facility]. Rec. 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 [id number], ringworm Tx 01/24/19, 07/2009, IABX 1, spAB X1, RPR+ 1:2, negative T. Pallidum Final Diagnosis A. PLACENTA: THIRD TRIMESTER PLACENTA. TRIVASCULAR CORD. MEMBRANES WITH NO DIAGNOSTIC ABNORMALITIES. Comment: History of placenta previa noted. B. RIGHT PORTION OF FALLOPIAN TUBE: COMPLETE CROSS SECTION OF THE FALLOPIAN TUBE IDENTIFIED. C. LEFT PORTION OF FALLOPIAN TUBE: COMPLETE CROSS SECTION OF THE FALLOPIAN TUBE IDENTIFIED. Electronically Signed Autumn Liao M.D. Gross Description A. The specimen is received fresh labeled "placenta" and is a 429 gram, 19 x 17.5 x 1.8 cm. placenta with attached membranes and umbilical cord. The attached membranes are glistening and translucent and insert at the margin. The umbilical cord measures 6 cm. in length and averages 1.4 cm. in diameter. The cord inserts eccentrically 5 cm from the margin. No true knots or strictures are identified. Cut surface of the umbilical cord reveals 3 vessels. The surface is erickson-blue with minimal fibrin deposition. At the center of the placenta, irregular disruption/rupture of the parenchyma (5cm in greatest dimension) with minimal blood attached to the maternal surface is noted. Sectioning reveals red-brown, spongy parenchyma. No focal lesions are identified. Humidifier Operator sections are submitted in three cassettes as follows: 1- membrane rolls and umbilical cord; 2-3 full thickness sections of placenta. 4 to 5: parenchymal disruption/ruptured area. B. Received fresh labelled "right fallopian tube" is a 8.0 cm long by 0.5 cm in diameter portion of tissue consistent with a portion of fallopian tube. The fimbriated end is identified. No focal lesions are identified. Sectioned and human resources hr representative sections submitted in one cassette. C. Received fresh labelled "left fallopian tube" is a 8.0 cm long by 0.5 cm in diameter portion of tissue consistent with a portion of fallopian tube. The fimbriated end is identified. No focal lesions are identified. Sectioned and human resources hr representative sections submitted in one cassette. __ YAJAIRA/05/16/2019 miracle/05/16/2019
[2019-05-19 11:10] VITALS: BP 132/73; PULSE 85; TEMP 98.3
== END 2019-05-19 18:00 | disposition home or self-care (01) | DRG 540 ==
LOC: JDEL 11:05 → JLDR 13:00 → J3W 20:08
PROVIDERS: ADMIT Obstetrics & Gynecology; ATTEND Obstetrics & Gynecology
PROC: 10D00Z1 Extraction of Products of Conception, Low, Open Approach (ICD-10-PCS; principal; 2019-05-15)
PROC: 0UT70ZZ Resection of Bilateral Fallopian Tubes, Open Approach (ICD-10-PCS; 2019-05-15)
DX: O44.13 Complete placenta previa with hemorrhage, third trimester (principal); Z3A.34 34 weeks gestation of pregnancy; Z37.0 Single live birth; Z30.2 Encounter for sterilization
CPT/HCPCS: 36415; 36600; 80048; 82803; 85025; 85610; 85730; 86593; 86780; 86850; 86900; 86901; 86922; 87389; 88302-TC; 88307-TC

== ENCOUNTER 2019-09-24 10:36 | Emergency (ER) | payer OTHER ==
[2019-09-24 10:40] VITALS: BP 126/76; PULSE 99; TEMP 100.1; BMI 23.3
[2019-09-24] MEDS ORDERED: IBUPROFEN 400 MG TABLET (FP) PO ONE ×2 (11:28→11:35)
--- NOTE | 2019-09-24 11:32 | PDOC ---
History of Present Illness - General Chief Complaint: Respiratory Stated Complaint: COLD SYMPTOMS Time Seen by Provider: 09/24/19 11:22 History Source: Patient - History of Present Illness Timing/Duration: reports: other Associated Symptoms: reports: fever/chills, sore throat Past History - Past Medical History Allergies/Adverse Reactions: Allergies Allergy/AdvReac Type Severity Reaction Status Date / Time No Known Allergies Allergy Verified 09/24/19 10:39 Home Medications: Ambulatory Orders Oseltamivir Phosphate [Tamiflu -] 75 mg PO BID #10 capsule 09/24/19 Asthma: No Cancer: No Cardiac Disorders: No COPD: No DVT: No Diabetes: No HTN: No Seizures: No Thyroid Disease: No - Reproductive History (#): 3 Para: 2 Cervical CA: No Dysfunctional Uterine Bleeding: No Ectopic : No Endometrial CA: No Polycystic Ovaries: No Therapeutic (s) & number: No Tubal Ligation: No Spontaneous : 0 - Psycho Social/Smoking Cessation Hx Smoking History: Never smoked Have you smoked in the past 12 months: No Hx Alcohol Use: No Drug/Substance Use Hx: No Substance Use Type: None Hx Substance Use Treatment: No Review of Systems - Review of Systems Constitutional: Yes: Fever HEENTM: Yes: Throat Pain. No: Ear Pain Respiratory: No: Cough *Physical Exam - Vital Signs Last Vital Signs Temp Pulse Resp BP Pulse Ox 100.1 F H 99 H 18 126/76 98 09/24/19 10:37 09/24/19 10:37 09/24/19 10:37 09/24/19 10:37 09/24/19 10:37 - Physical Exam 09/24/19 11:32 julia ill General Appearance: Yes: Appropriately Dressed HEENT: positive: Normal ENT Inspection, Normal Voice, TMs Normal, Pharynx Normal. negative: Tonsillar Exudate, Tonsillar Erythema Neck: positive: Supple. negative: Lymphadenopathy (R), Lymphadenopathy (L) Respiratory/Chest: negative: Respiratory Distress Integumentary: positive: Dry, Warm Neurologic: positive: Fully Oriented, Alert, Normal Mood/Affect Medical Decision Making - Medical Decision Making 09/24/19 11:31 39 yo F, no sig pmhx, currently breast feeding, here with sore throat and fever x 2 days. No cough or body aches see exam Possible viral URI, r/o strep and flu -dose of motrin given for low grade fever in ED 09/24/19 13:17 Patient has the flu. I explained to patient that we can start her on Tamiflu but that there is a very, very small amount that is excreted in breast milk and that she should consider suspending breast-feed while on meds. To continue supportive treatment at home Discharge - Discharge Information Problems reviewed: Yes Clinical Impression/Diagnosis: Influenza Condition: Improved Disposition: HOME - Additional Discharge Information Prescriptions: Oseltamivir Phosphate [Tamiflu -] 75 mg PO BID #10 capsule - Follow up/Referral - Patient Discharge Instructions Patient Printed Discharge Instructions: Influenza Additional Instructions: You have the flu. You were prescribed Tamiflu which is a medication that can make you feel better faster. Tamiflu is present in breast milk and there is a very small dose, 0.5%, that your child would be exposed to. This is generally an acceptable amount but you should consider suspending breast-feed while on medication. Continue to rest drink plenty fluids and take Tylenol as needed for pain and/or fever - Post Discharge Activity
== END 2019-09-24 13:28 | disposition home or self-care (01) ==
LOC: JERFT 10:36
DX: J10.1 Influenza due to other identified influenza virus with other respiratory manifestations (principal)
CPT/HCPCS: 87070; 87804; 87880; 99282-25